=== PATIENT | male | born 1955 | race Caucasian/White ===

== ENCOUNTER 2023-08-26 10:28 | Emergency (ER) | payer OTHER, SELFPAY ==
[2023-08-26 10:30] VITALS: BP 161/110
--- NOTE | 2023-08-26 11:33 | ED.MUSCINJ ---
HPI-Injury
<Jalen Strickland PA-C - Last Filed: 08/26/23 11:35>
General
Chief Complaint: Fall
Source: patient
Exam Limitations: none
Time Seen by Provider: 08/26/23 11:16
Travel History
Have you had any contact with someone who has COVID-19?: No
Do you have any symptoms of coronavirus? Fever > 100 degrees, chills, cough, shortness of breath, sore throat, loss of taste or smell, muscle aches, or headache?: No
History of Present Illness-Injury
Initial Injury comments:
67-year-old male presents complaining of right lower back pain that started yesterday after a fall. Backwards onto a metal fan that was on the floor and complains of pain to the right flank and lower back. It is worse with motion. No leg
discomfort. No bowel or bladder dysfunction. Pain is worse today than yesterday. No other complaints at this time
Past History
<Jalen Strickland PA-C - Last Filed: 08/26/23 11:35>
Past History
ED Past Medical History: HTN
Social History
Tobacco: Non-smoker
Living: with roommate
Employment: Employed
Phy Exam
<Jalen Strickland PA-C - Last Filed: 08/26/23 11:35>
Physical Exam
Physical Exam:
General: Well-appearing male no acute respiratory distress
HEENT: Normocephalic atraumatic
Heart: Regular rate and rhythm no murmurs
Lungs: Clear no wheeze or rales
Musculoskeletal exam: Patient is tender over the right lower lumbar spine and costovertebral angle. The lower right ribs are slightly tender as is the lumbosacral junction on the right side. No overlying ecchymosis of the flank.
Extremities: No cyanosis
Injury Course
<Jalen Strickland PA-C - Last Filed: 08/26/23 11:35>
Orders/Labs/Results
Orders:
Orders
08/26/23 11:29
HYDROmorphone [Dilaudid] 0.5 mg IV NOW STA
08/26/23 11:30
CT Abd/pelvis W Iv Cont Urgent
Comment:
Reason For Exam: fall, right flank/lower back pain
08/26/23 12:00
Complete Blood Count/With Diff Urgent
Comprehensive Metabolic Panel Urgent
08/26/23 14:32
Ketorolac [Toradol] 15 mg IV NOW STA
Abnormal Lab Results
08/26/23
12:00
WBC 12.4 H 10^3/uL
(4.8-10.8)
Abs Immat Gran (auto) 0.1 H 10^3/uL
(0-0.05)
Absolute Neuts (auto) 9.2 H 10^3/uL
(1.4-6.5)
Absolute Monos (auto) 1.5 H 10^3/uL
(0.1-0.6)
Immature Gran % 0.6 H %
(0-0.5)
Lymphocytes % 12.8 L %
(20.5-51.1)
Monocytes % 11.8 H %
(1.7-9.3)
BUN 23 H mg/dl
(9-20)
08/26/23 12:00
08/26/23 12:00
<Tristian Lewis PA-C - Last Filed: 08/26/23 18:06>
Orders/Labs/Results
Orders:
Orders
08/26/23 11:29
HYDROmorphone [Dilaudid] 0.5 mg IV NOW STA
08/26/23 11:30
CT Abd/pelvis W Iv Cont Urgent
Comment:
Reason For Exam: fall, right flank/lower back pain
08/26/23 12:00
Complete Blood Count/With Diff Urgent
Comprehensive Metabolic Panel Urgent
08/26/23 14:32
Ketorolac [Toradol] 15 mg IV NOW STA
Abnormal Lab Results
08/26/23
12:00
WBC 12.4 H 10^3/uL
(4.8-10.8)
Abs Immat Gran (auto) 0.1 H 10^3/uL
(0-0.05)
Absolute Neuts (auto) 9.2 H 10^3/uL
(1.4-6.5)
Absolute Monos (auto) 1.5 H 10^3/uL
(0.1-0.6)
Immature Gran % 0.6 H %
(0-0.5)
Lymphocytes % 12.8 L %
(20.5-51.1)
Monocytes % 11.8 H %
(1.7-9.3)
BUN 23 H mg/dl
(9-20)
08/26/23 12:00
08/26/23 12:00
<Jalen Strickladn PA-C - Last Filed: 08/26/23 11:35>
MDM/Problems Addressed
Differential Diagnosis Includes:
Flank and lower back pain after fall hitting hard object. Consider contusion versus muscular strain versus kidney injury versus rib fracture. CT of the abdomen and pelvis with IV contrast pending. Will treat with Dilaudid for pain
<Tristian Lewis PA-C - Last Filed: 08/26/23 18:06>
*Radiology
Radiology exam reviewed: radiology read reviewed
*Critical Care Note
Total Time (30-74mins, 75-104mins- exclusive of procedures): Not Applicable
<Tristian Lewis PA-C - Last Filed: 08/26/23 18:06>
Patient Management
Discussion with other providers: PCP
Escalation/DeEscalation of care consider admission/obs:
Patient received in signout pending CT scan results. CT scan does show a 1.4 cm low-attenuation mass along the posterior margin of the pancreatic head. Radiology is recommending nonemergent MRI on an outpatient basis. Secondary finding of a
nondisplaced hairline fracture of the L1 right transverse process. This does not require any neurosurgical intervention and can be treated with pain management. Patient states he has not been having much relief with Motrin or Tylenol. Will send a
short-term prescription for Percocet to patient's pharmacy. Patient was advised on the pancreatic mass and that he would need further imaging to better characterize this. I also sent notification to patient's primary care provider via [place] text
to try and help expedite this outpatient imaging. Provided with a printout of his CT report.
ED Attending Note
<Jalen Strickland PA-C - Last Filed: 08/26/23 11:35>
-
Portions of this chart may have been created with voice recognition software.� Occasional wrong word or��sound alike� substitutions may have occurred due to the inherent limitations of voice recognition software.
Discharge Plan
Departure
Patient Disposition: Home (Routine Discharge)
Date of Disposition: 08/26/23
Time of Disposition: 17:00
Patient with high blood pressure during this ER visit?: Yes
Discharge Problem:
Dorsalgia, Accidental fall, Pancreatic mass
Instructions: Back Pain
Prescriptions:
New
oxycodone-acetaminophen [Percocet] 5-325 mg Tablet
1 tab PO Q6HPRN PRN (Reason: pain) Qty: 8 0RF
Referrals:
Tabitha Sandoval MD [Family Provider] -
Activity Restrictions/Additional Instructions:
Please contact your primary care provider for further outpatient imaging of the pancreatic mass that was found on your CT scan today. Return to the emergency department with any worsening concerns.
Interventions
Interventions:
*Risk Screen - Suicide Last Done: 08/26/23 12:28
*General Assessment Last Done: 08/26/23 12:28
*Neglect/Abuse Screening Last Done: 08/26/23 12:28
ED- Fall Risk Assessment Last Done: 08/26/23 12:28
*ED COVID-19 Vaccine History Last Done: 08/26/23 12:28
*Nursing Disposition Last Done: 08/26/23 17:10
ED-Musculoskeletal Assessment Last Done: 08/26/23 12:28
ED- Neurological Assessment Last Done: 08/26/23 12:28
ED-Skin Assessment Last Done: 08/26/23 12:28
Discharge Date and Time
Discharge Date/Time: 08/26/23 17:10
Print Language: BELARUSIAN
[2023-08-26] MEDS: DILAUDID 0.5 MG IV (11:57)
[2023-08-26 12:12] LABS: % Basophils 0.2 % (0-2); % Immature Granulocytes 0.6 % (0-0.5); % Lymphocytes 12.8 % (20.5-51.1); % Monocytes 11.8 % (1.7-9.3); % Neutrophils 73.6 % (42.2-75.2); Absolute Eosinophils 0.1 10^3/uL (0-0.7); Absolute Immature Granulocytes 0.1 10^3/uL (0-0.05); Absolute Lymphocytes 1.6 10^3/uL (1.2-3.4); Absolute Monocytes 1.5 10^3/uL (0.1-0.6); Absolute Neutrophils 9.2 10^3/uL (1.4-6.5); Hematocrit 44.9 % (39.0-52.0); Hemoglobin 15.4 g/dL (13.0-18.0); Mean Corp Hgb Conc. 34.3 g/dL (33.0-37.0); Mean Corpuscular Hgb 30.2 pg (27.0-31.0); Mean Platelet Volume 9.8 fL (7.4-10.4); Nucleated Red Blood Cells % 0 % (-); Platelet Count 236 10^3/uL (130-400); Red Cell Dist. Width 13.3 % (11.5-14.5); White Blood Cell Count 12.4 10^3/uL (4.8-10.8)
[2023-08-26 12:31] LABS: ALT (SGPT) 25 U/L (0-50); AST (SGOT) 52 U/L (17-59); Albumin 4.6 g/dl (3.5-5.0); Alkaline Phosphatase 58 U/L (38-126); Blood Urea Nitrogen 23 mg/dl (9-20); Calcium 9.8 mg/dl (8.4-10.2); Carbon Dioxide 29 mmol/L (22-30); Chloride 101 mmol/L (98-107); Glucose 89 mg/dl (70-99); Potassium 4.5 mmol/L (3.5-5.1); Sodium 136 mmol/L (135-145); Total Bilirubin 0.5 mg/dl (0.2-1.3); Total Protein 7.5 g/dl (6.3-8.2); eGFR > 60.00
[2023-08-26] MEDS: TORADOL 15 MG IV (14:37)
[2023-08-26 15:50] VITALS: BP 154/95
[2023-08-26 17:09] VITALS: BP 138/98
== END 2023-08-26 17:10 | disposition home or self-care (01) ==
LOC: EMR 10:28
PROVIDERS: Physician Assistant; EMERGENCY PHYSICIAN Emergency Medicine; FAMILY PHYSICIAN Family Medicine
DX: S32.019A Unspecified fracture of first lumbar vertebra, initial encounter for closed fracture (principal); M54.50 Low back pain, unspecified; R10.9 Unspecified abdominal pain; K86.9 Disease of pancreas, unspecified; W01.198A Fall on same level from slipping, tripping and stumbling with subsequent striking against other object, initial encounter; I10 Essential (primary) hypertension
CPT/HCPCS: 99285; 74177; 80053; 85025; Q9967

== ENCOUNTER → 2023-09-11 08:13 | Outpatient (REF) | payer OTHER, SELFPAY ==
[2023-09-11 09:05] LABS: % Basophils 0.5 % (0-2); % Eosinophils 3.2 % (0-6); % Immature Granulocytes 0.5 % (0-0.5); % Lymphocytes 24.1 % (20.5-51.1); % Monocytes 10.8 % (1.7-9.3); % Neutrophils 60.9 % (42.2-75.2); Absolute Basophils 0.1 10^3/uL (0-0.2); Absolute Eosinophils 0.3 10^3/uL (0-0.7); Absolute Immature Granulocytes 0.1 10^3/uL (0-0.05); Absolute Lymphocytes 2.5 10^3/uL (1.2-3.4); Absolute Monocytes 1.1 10^3/uL (0.1-0.6); Absolute Neutrophils 6.3 10^3/uL (1.4-6.5); Hematocrit 49.8 % (39.0-52.0); Hemoglobin 16.1 g/dL (13.0-18.0); Mean Corp Hgb Conc. 32.3 g/dL (33.0-37.0); Mean Corpuscular Hgb 29.6 pg (27.0-31.0); Mean Corpuscular Volume 91.5 fL (80.0-94.0); Mean Platelet Volume 9.7 fL (7.4-10.4); Nucleated Red Blood Cells % 0 % (-); Platelet Count 257 10^3/uL (130-400); Red Blood Cell Count 5.44 10^6/uL (4.70-6.10); Red Cell Dist. Width 13.2 % (11.5-14.5); White Blood Cell Count 10.4 10^3/uL (4.8-10.8)
[2023-09-11 10:16] LABS: ALT (SGPT) 32 U/L (0-50); AST (SGOT) 57 U/L (17-59); Albumin 4.6 g/dl (3.5-5.0); Alkaline Phosphatase 65 U/L (38-126); Blood Urea Nitrogen 25 mg/dl (9-20); Calcium 9.6 mg/dl (8.4-10.2); Carbon Dioxide 29 mmol/L (22-30); Chloride 103 mmol/L (98-107); Glucose 84 mg/dl (70-99); Potassium 4.6 mmol/L (3.5-5.1); Sodium 140 mmol/L (135-145); Total Bilirubin 0.7 mg/dl (0.2-1.3); Total Protein 7.5 g/dl (6.3-8.2); eGFR > 60.00
[2023-09-11 10:46] LABS: TSH 1.88 uIU/ml (0.47-4.68)
== END ==
LOC: REG 08:13
PROVIDERS: ATTENDING PHYSICIAN Family Medicine
DX: I10 Essential (primary) hypertension (principal); E78.2 Mixed hyperlipidemia
CPT/HCPCS: 36415; 80053; 84443; 85025

== ENCOUNTER → 2023-09-18 16:23 | Outpatient (REF) | payer OTHER, SELFPAY | LOC: MRI 3T 16:23 | PROVIDERS: ATTENDING PHYSICIAN Family Medicine | DX: K86.89 Other specified diseases of pancreas (principal) | CPT/HCPCS: 74183; A9575 ==

== ENCOUNTER → 2024-02-21 13:01 | Outpatient (REF) | payer OTHER, SELFPAY | LOC: HWRAD 13:01 | PROVIDERS: ATTENDING PHYSICIAN Family Medicine | DX: N50.812 Left testicular pain (principal); M54.50 Low back pain, unspecified | CPT/HCPCS: 72110; 76870; 76882; 93976 ==

== ENCOUNTER 2024-03-09 10:07 | Emergency (ER) | payer OTHER, SELFPAY ==
[2024-03-09] VITALS (7 sets, daily range): BP systolic 144–181; BP diastolic 78–99
[2024-03-09 11:22] LABS: % Basophils 0.5 % (0-2); % Eosinophils 1.6 % (0-6); % Immature Granulocytes 0.8 % (0-0.5); % Lymphocytes 14.1 % (20.5-51.1); % Monocytes 8.8 % (1.7-9.3); % Neutrophils 74.2 % (42.2-75.2); Absolute Eosinophils 0.1 10^3/uL (0-0.7); Absolute Immature Granulocytes 0.1 10^3/uL (0-0.05); Absolute Lymphocytes 1.2 10^3/uL (1.2-3.4); Absolute Monocytes 0.7 10^3/uL (0.1-0.6); Absolute Neutrophils 6.2 10^3/uL (1.4-6.5); Hematocrit 47.5 % (39.0-52.0); Hemoglobin 15.9 g/dL (13.0-18.0); Mean Corp Hgb Conc. 33.5 g/dL (33.0-37.0); Mean Corpuscular Hgb 29.7 pg (27.0-31.0); Mean Corpuscular Volume 88.8 fL (80.0-94.0); Mean Platelet Volume 9.7 fL (7.4-10.4); Nucleated Red Blood Cells % 0 % (-); Platelet Count 244 10^3/uL (130-400); Red Blood Cell Count 5.35 10^6/uL (4.70-6.10); Red Cell Dist. Width 13.2 % (11.5-14.5); White Blood Cell Count 8.4 10^3/uL (4.8-10.8)
[2024-03-09 11:40] LABS: ALT (SGPT) 55 U/L (0-50); AST (SGOT) 70 U/L (17-59); Albumin 4.6 g/dl (3.5-5.0); Alkaline Phosphatase 46 U/L (38-126); Blood Urea Nitrogen 18 mg/dl (9-20); Calcium 9.3 mg/dl (8.4-10.2); Carbon Dioxide 28 mmol/L (22-30); Chloride 101 mmol/L (98-107); Glucose 103 mg/dl (70-99); Potassium 4.3 mmol/L (3.5-5.1); Sodium 138 mmol/L (135-145); Total Bilirubin 0.6 mg/dl (0.2-1.3); Total Protein 7.3 g/dl (6.3-8.2); eGFR > 60.00
[2024-03-09 11:44] LABS: Troponin I < 0.012 ng/ml
[2024-03-09 14:36] LABS: Troponin I < 0.012 ng/ml
--- NOTE | 2024-03-09 15:41 | ED.GENMED ---
History of Present Illness
General
Chief Complaint: Chest Pain
Source: patient
Exam Limitations: none
Time Seen by Provider: 03/09/24 13:20
Nursing documentation reviewed up to this point in time: agreed with
History of Present Illness
History of Present Illness:
68-year-old male past medical history of hypertension hyperlipidemia presenting to the emergency department today with concerns of chest discomfort and palpitations over the past few days seems to be intermittent. Also noticed that his blood
pressure was elevated. Denies any nausea vomiting fevers or recent illness.
Past History
Past History
ED Past Medical History: HTN
Social History
Tobacco: Non-smoker
Living: with roommate
Employment: Employed
Review of Systems
Review of Systems
Allergies reviewed?: Yes
All Other Systems: ROS reviewed and negative except as documented in HPI and ROS
Phy Exam
Physical Exam
Physical Exam:
GENERAL: Alert , in no apparent distress
EYE: pupils equal and reactive
NECK: Supple, no significant adenopathy.
ENT: o/p clr, mmm.
CARDIAC: Regular rate and rhythm .
LUNGS: Clear breath sounds bilaterally, no acute respiratory distress, no wheezes/rales/rhonchi
ABDOMEN: Soft, without focal tenderness, no r/g, no cvat
NEUROLOGICAL: Alert and oriented, no focal neuro deficits
SKIN: Warm and dry, skin intact.
MUSCULOSKELETAL: No edema, well perfused.
PSYCH: Normal and appropriate interaction.
Scores
Heart Score for Chest Pain Patients
STEMI patient?: No
History: Slightly or Non-Suspicious
ECG: Normal
Age: >/= 65 years
Risk Factors: >/= 3 Risk Factors or History of CAD
Troponin: </= Normal Limit
Heart Score for Chest Pain Patients: 4
Heart Score Risk: 20.3% MACE over next 6 weeks
Course
Orders/Labs/Results
Orders:
Orders
03/09/24 10:11
EKG [Electrocardiogram (*1)] Urgent
Reason for Study: Chest Pain
03/09/24 10:12
EKG- Treatment ONCE
03/09/24 11:11
Complete Blood Count/With Diff Urgent
Comprehensive Metabolic Panel Urgent
Troponin I Urgent
03/09/24 13:21
Chest [CR Chest - 2 Views ] Urgent
Comment:
Reason For Exam: cp
03/09/24 13:40
EKG [Electrocardiogram (*1)] Urgent
Reason for Study: Chest Pain
03/09/24 13:41
EKG- Treatment ONCE
03/09/24 13:58
Troponin I Urgent
Abnormal Lab Results
03/09/24
11:11
Abs Immat Gran (auto) 0.1 H 10^3/uL
(0-0.05)
Absolute Monos (auto) 0.7 H 10^3/uL
(0.1-0.6)
Immature Gran % 0.8 H %
(0-0.5)
Lymphocytes % 14.1 L %
(20.5-51.1)
Glucose 103 H mg/dl
(70-99)
AST 70 H U/L
(17-59)
ALT 55 H U/L
(0-50)
03/09/24 11:11
03/09/24 11:11
Vital Signs
Initial and Last Documented VS:
Initial Vital Signs
Temp Pulse Resp BP Pulse Ox
97.0 F 69 16 181/99 96
03/09/24 10:39 03/09/24 10:39 03/09/24 10:39 03/09/24 10:39 03/09/24 10:39
Last Documented Vital Signs
Temp Pulse Resp BP Pulse Ox
97.0 F 61 16 153/91 92
03/09/24 10:39 03/09/24 15:15 03/09/24 15:15 03/09/24 15:00 03/09/24 15:00
MDM/Problems Addressed
MDM/Problems Addressed:
68-year-old male presenting to the emergency department today with concerns of discomfort to his chest with some heart fluttering over the past few days intermittently. Here initial blood pressure elevated but improving to the 150s over 80s while
here with no specific treatment. Labs unremarkable troponin negative EKG without emergent findings. Chest x-ray without emergent findings as well. Repeated troponin at 3 hours was also negative. Patient well-appearing throughout ER stay.
Patient does have an appoint with his cardiology group tomorrow. I feel this is reasonable follow-up low risk for ACS at this time return precautions given.
*Critical Care Note
Total Time (30-74mins, 75-104mins- exclusive of procedures): Not Applicable
ED Attending Note
-
Portions of this chart may have been created with voice recognition software.� Occasional wrong word or��sound alike� substitutions may have occurred due to the inherent limitations of voice recognition software.
Discharge Plan
Departure
Patient Disposition: Home (Routine Discharge)
Date of Disposition: 03/09/24
Time of Disposition: 15:42
Patient with high blood pressure during this ER visit?: No
Condition: Good
Covid-19: Not Applicable
Discharge Problem:
Chest pain
Instructions: Chest Pain CBC Follow Up
Prescriptions:
No Action
oxycodone-acetaminophen [Percocet] 5-325 mg Tablet
1 tab PO Q6HPRN PRN (Reason: pain) Qty: 8 0RF
Referrals:
Tabitha Sandoval MD [Family Provider] -
Activity Restrictions/Additional Instructions:
You came to the emergency department today with concerns of chest discomfort and palpitations. Please follow closely tomorrow for further assessment. Your workup here was reassuring.
Interventions
Interventions:
*Risk Screen - Suicide Last Done: 03/09/24 10:39
*General Assessment Last Done: 03/09/24 10:39
*Neglect/Abuse Screening Last Done: 03/09/24 10:39
ED- Fall Risk Assessment Last Done: 03/09/24 14:00
*ED COVID-19 Vaccine History Last Done: 03/09/24 10:39
ED- Cardiac Assessment Last Done: 03/09/24 14:00
Discharge Date and Time
Print Language: ROMANIAN
== END 2024-03-09 16:15 | disposition home or self-care (01) ==
LOC: EMR 10:07
PROVIDERS: Physician Assistant; EMERGENCY PHYSICIAN Emergency Medicine; FAMILY PHYSICIAN Family Medicine
DX: R07.89 Other chest pain (principal); I10 Essential (primary) hypertension; E78.00 Pure hypercholesterolemia, unspecified; I25.10 Atherosclerotic heart disease of native coronary artery without angina pectoris
CPT/HCPCS: 99283; 71046; 80053; 84484; 85025; 93005

== ENCOUNTER → 2024-03-18 10:07 | Outpatient (REF) | payer OTHER, SELFPAY ==
[2024-03-18 16:59] LABS: C-Reactive Protein < 5.00 mg/L (0.0-10.00)
[2024-03-18 17:16] LABS: Erythrocyte Sed Rate 10 mm/hour (0-20)
== END ==
LOC: RCS 10:07
PROVIDERS: ATTENDING PHYSICIAN Internal Medicine Cardiovascular Disease; FAMILY PHYSICIAN Family Medicine; REFERRING PHYSICIAN Ophthalmology
DX: E78.2 Mixed hyperlipidemia (principal); M31.6 Other giant cell arteritis; H25.13 Age-related nuclear cataract, bilateral; H02.883 Meibomian gland dysfunction of right eye, unspecified eyelid; H02.884 Meibomian gland dysfunction left upper eyelid; H04.123 Dry eye syndrome of bilateral lacrimal glands
CPT/HCPCS: 36415; 85652; 86140; 93225; 93226

== ENCOUNTER → 2024-03-20 10:05 | Outpatient (REF) | payer OTHER, SELFPAY ==
--- NOTE | 2024-03-20 11:28 | CARDSERVDEF ---
Echocardiogram with Definity completed after protocol screening completed. Allergies verified. Pt here for Cardiac Stress Echo
Patent IV site: _Left metacarpal/hand 22 G PC inserted by Marybeth Hensley RN____
IV site flushed with 0.9% NaCl pre and post administration.
Diluted bolus method utilized to enhance visualization of ventricular hunter.
Total volume given: _4___ mL
Patient tolerated all procedures well without complications.
Heplock D/C ed at 1125, site clear, no redness, no edema. Pressure held, no bleeding,2x2 applied and taped. Pt offers no complaints.
== END ==
LOC: RCS 10:05
PROVIDERS: ATTENDING PHYSICIAN Internal Medicine Cardiovascular Disease; FAMILY PHYSICIAN Family Medicine
DX: R07.89 Other chest pain (principal)
CPT/HCPCS: 93017; 93350; Q9957

== ENCOUNTER → 2024-09-17 14:22 | Outpatient (REF) | payer OTHER, SELFPAY | LOC: PAVMRI 14:22 | PROVIDERS: ATTENDING PHYSICIAN Internal Medicine Gastroenterology; FAMILY PHYSICIAN Family Medicine | DX: D49.0 Neoplasm of unspecified behavior of digestive system (principal) | CPT/HCPCS: 74183; A9575 ==